=== PATIENT | male | born 1940 | race Caucasian/White ===

== ENCOUNTER 2017-01-26 16:33 | Emergency (ER) | payer MEDICARE, OTHER ==
[2017-01-26] MEDS ORDERED: Sodium Chloride 0.9% 10 ML Syringe FLUSH PRN (18:19)
--- NOTE | 2017-01-26 18:26 | EDM.PDOC ---
ED HPI GENERAL MEDICAL PROBLEM - General Chief Complaint: Exposure to Heat or Cold Stated Complaint: FELL Time Seen by Provider: 01/26/17 18:12 Source of Information: Reports: Patient, Family, RN Notes Reviewed History Limitations: Reports: No Limitations - History of Present Illness INITIAL COMMENTS - FREE TEXT/NARRATIVE: 76-year-old gentleman presents emergency department day complaint of weakness, he states he's been out in the sun most the day has progressively gotten weak throughout the day has fallen 5 times because he's so weak he denies the ability to sweat, no fever no nausea or vomiting - Related Data Allergies Allergy/AdvReac Type Severity Reaction Status Date / Time No Known Allergies Allergy Verified 01/26/17 17:04 Home Meds: Home Meds DULoxetine HCl [Cymbalta] 30 mg PO DAILY 01/26/17 [History] Furosemide [Lasix] 20 mg PO DAILY PRN 01/26/17 [History] Gabapentin [Gabapentin] 100 mg PO BID 01/26/17 [History] Pantoprazole [ProTONIX] 40 mg PO DAILY 01/26/17 [History] Ranitidine HCl [Zantac] 150 mg PO BID 01/26/17 [History] Tamsulosin HCl [Flomax] 0.4 mg PO BID 01/26/17 [History] amLODIPine [Norvasc] 10 mg PO DAILY 01/26/17 [History] atorvaSTATin [Lipitor] 80 mg PO DAILY 01/26/17 [History] buPROPion HCl [Wellbutrin SR] 150 mg PO DAILY 01/26/17 [History] traZODone 100 mg PO BEDTIME 01/26/17 [History] Past Medical History Cardiovascular History: Reports: High Cholesterol, Hypertension, Other (See Below) Other Cardiovascular History: angioplasty Gastrointestinal History: Reports: GERD Genitourinary History: Reports: Prostate Disorder Psychiatric History: Reports: Anxiety, Depression - Past Surgical History HEENT Surgical History: Reports: LASIK GI Surgical History: Reports: Hernia Repair/Other Neurological Surgical History: Reports: Lumbar Spine Musculoskeletal Surgical History: Reports: Hip Replacement, Knee Replacement Social & Family History - Tobacco Use Smoking Status *Q: Never Smoker - Caffeine Use Caffeine Use: Reports: Tea - Recreational Drug Use Recreational Drug Use: No ED ROS GENERAL - Review of Systems Review Of Systems: See Below Constitutional: Reports: Weakness. Denies: Fever, Chills, Diaphoresis HEENT: Reports: No Symptoms Respiratory: Reports: No Symptoms Cardiovascular: Reports: No Symptoms GI/Abdominal: Reports: No Symptoms : Reports: No Symptoms Musculoskeletal: Reports: No Symptoms Skin: Reports: No Symptoms Neurological: Reports: No Symptoms (Or or) Psychiatric: Reports: No Symptoms ED EXAM, GENERAL - Physical Exam Exam: See Below (And) Free Text/Narrative:: General: Elderly gentleman, not in any distress, alert and oriented x3 HEENT: head is normo an abrasion temporal right side, normal, eyes pupils equal round reactive to light, sclera clear no conjunctivitis appreciated. Ears hearing aids in place bilaterally. Nose no septal deviation, nares are clear, no blood present. Mouth mucosa is moist and pink no erythema or exudate noted in soft palate, tongue is midline uvula is midline, dentition is intact. Neck: Supple no thyromegaly no tracheal deviation. Nodes: Cervical nodes subclavicular nodes nontender no palpable lymphadenopathy noted. Lungs: clear to auscultation bilaterally with symmetrical respirations, no adventitious noise appreciated. CV: Regular rate and rhythm S1 and S2 appreciated no murmurs rubs or gallops noted. Abdomen: Soft, nontender, no palpable masses or organomegaly appreciated, no distention no guarding bowel sounds are present, . Neuro: Cranial nerves II through XII grossly intact Skin: Abrasions are noted on the left elbow with superficial skin tears and Extremities: No lower extremity edema appreciated, . Course - Vital Signs Last Recorded V/S: Last Vital Signs Temp 97.9 F 01/26/17 18:16 Pulse 57 L 01/26/17 21:28 Resp 20 01/26/17 21:28 BP 148/85 H 01/26/17 21:28 Pulse Ox 92 L 01/26/17 21:28 - Orders/Labs/Meds Orders: Active Orders 24 hr Category Date Time Status EKG Documentation Completion [RC] ASDIRECTED Care 01/26/17 18:20 Active Peripheral IV Care [RC] . DIRECTED Care 01/26/17 18:20 Active Elbow 2V Lt [CR] Stat Exams 01/26/17 18:26 Taken Head wo Cont [CT] Stat Exams 01/26/17 20:44 Taken Lactated Ringers [Ringers, Lactated] 1,000 ml Med 01/26/17 18:30 Active IV ASDIRECTED Sodium Chloride 0.9% [Saline Flush] Med 01/26/17 18:19 Active 10 ml FLUSH ASDIRECTED PRN Peripheral IV Insertion Adult [OM.PC] Urgent Oth 01/26/17 18:19 Ordered EKG 12 Lead [EK] Stat Ther 01/26/17 18:20 Ordered Medication Orders Lactated Ringer's (Ringers, Lactated) 1,000 mls @ 999 mls/hr IV ASDIRECTED LUIS Last Admin: 01/26/17 18:33 Dose: 999 mls/hr Sodium Chloride (Saline Flush) 10 ml FLUSH ASDIRECTED PRN PRN Reason: Keep Vein Open Last Admin: 01/26/17 18:34 Dose: 10 ml Labs: Laboratory Tests 01/26/17 01/26/17 01/26/17 Range/Units 18:19 18:19 18:19 WBC 11.8 H (4.5-11.0) K/uL RBC 4.54 (4.30-5.90) M/uL Hgb 14.3 (12.0-15.0) g/dL Hct 42.5 (40.0-54.0) % MCV 94 (80-98) fL MCH 32 H (27-31) pg MCHC 34 (32-36) % Plt Count 173 (150-400) K/uL Neut % (Auto) 81 H (36-66) % Lymph % (Auto) 11 L (24-44) % Coleman % (Auto) 7 H (2-6) % Eos % (Auto) 1 L (2-4) % Baso % (Auto) 0 (0-1) % Sodium 137 L (140-148) mmol/L Potassium 4.5 (3.6-5.2) mmol/L Chloride 102 (100-108) mmol/L Carbon Dioxide 25 (21-32) mmol/L Anion Gap 14.5 H (5.0-14.0) mmol/L BUN 28 H (7-18) mg/dL Creatinine 1.5 H (0.8-1.3) mg/dL Est Cr Clr Drug Dosing 39.17 mL/min Estimated GFR (MDRD) 46 L (>60) Glucose 94 (74-106) mg/dL Lactic Acid 1.2 (0.4-2.0) mmol/L Calcium 9.0 (8.5-10.1) mg/dL Magnesium 2.6 H (1.8-2.4) mg/dL Total Bilirubin 0.6 (0.2-1.0) mg/dL AST 21 (15-37) U/L ALT 35 (12-78) U/L Alkaline Phosphatase 81 (46-116) U/L Total Protein 7.7 (6.4-8.2) g/dL Albumin 3.6 (3.4-5.0) g/dL Globulin 4.1 H (2.3-3.5) g/dL Albumin/Globulin Ratio 0.9 L (1.2-2.2) Urine Color Urine Appearance Urine pH (4.5-8.0) Ur Specific [place] (1.008-1.030) Urine Protein (NEGATIVE) mg/dL Urine Glucose (UA) (NEGATIVE) mg/dL Urine Ketones (NEGATIVE) mg/dL Urine Occult Blood (NEGATIVE) Urine Nitrite (NEGAITVE) Urine Bilirubin (NEGATIVE) Urine Urobilinogen (NORMAL) mg/dL Ur Leukocyte Esterase (NEGATIVE) Urine RBC (0-5) Urine WBC (0-5) Ur Epithelial Cells Amorphous Sediment Urine Bacteria Urine Mucus 01/26/17 Range/Units 19:11 WBC (4.5-11.0) K/uL RBC (4.30-5.90) M/uL Hgb (12.0-15.0) g/dL Hct (40.0-54.0) % MCV (80-98) fL MCH (27-31) pg MCHC (32-36) % Plt Count (150-400) K/uL Neut % (Auto) (36-66) % Lymph % (Auto) (24-44) % Coleman % (Auto) (2-6) % Eos % (Auto) (2-4) % Baso % (Auto) (0-1) % Sodium (140-148) mmol/L Potassium (3.6-5.2) mmol/L Chloride (100-108) mmol/L Carbon Dioxide (21-32) mmol/L Anion Gap (5.0-14.0) mmol/L BUN (7-18) mg/dL Creatinine (0.8-1.3) mg/dL Est Cr Clr Drug Dosing mL/min Estimated GFR (MDRD) (>60) Glucose (74-106) mg/dL Lactic Acid (0.4-2.0) mmol/L Calcium (8.5-10.1) mg/dL Magnesium (1.8-2.4) mg/dL Total Bilirubin (0.2-1.0) mg/dL AST (15-37) U/L ALT (12-78) U/L Alkaline Phosphatase (46-116) U/L Total Protein (6.4-8.2) g/dL Albumin (3.4-5.0) g/dL Globulin (2.3-3.5) g/dL Albumin/Globulin Ratio (1.2-2.2) Urine Color Yellow Urine Appearance Clear Urine pH 6.0 (4.5-8.0) Ur Specific [place] 1.010 (1.008-1.030) Urine Protein Negative (NEGATIVE) mg/dL Urine Glucose (UA) Normal (NEGATIVE) mg/dL Urine Ketones Negative (NEGATIVE) mg/dL Urine Occult Blood Negative (NEGATIVE) Urine Nitrite Negative (NEGAITVE) Urine Bilirubin Negative (NEGATIVE) Urine Urobilinogen Normal (NORMAL) mg/dL Ur Leukocyte Esterase Negative (NEGATIVE) Urine RBC 0-5 (0-5) Urine WBC 0-5 (0-5) Ur Epithelial Cells Rare Amorphous Sediment Few Urine Bacteria Not seen Urine Mucus Few Meds: Medications Generic Name Dose Route Start Last Admin Trade Name Freq PRN Reason Stop Dose Admin Lactated Ringer's 1,000 mls @ 999 mls/hr 01/26/17 18:30 01/26/17 18:33 Ringers, Lactated IV 999 mls/hr ASDIRECTED LUIS Administration Sodium Chloride 10 ml 01/26/17 18:19 01/26/17 18:34 Saline Flush FLUSH 10 ml ASDIRECTED PRN Administration Keep Vein Open Departure - Departure Time of Disposition: 22:00 Disposition: Home, Self-Care 01 Condition: fair Clinical Impression: Heat exposure Qualifiers: Encounter type: initial encounter Qualified Code(s): T67.9XXA - Effect of heat and light, unspecified, initial encounter - Discharge Information Forms: ED Department Discharge Additional Instructions: please report for your epidural injection tomorrow, and followup with your primary care provider about spinal stenosis - My Orders Last 24 Hours: My Active Orders 01/26/17 18:19 Sodium Chloride 0.9% [Saline Flush] 10 ml FLUSH ASDIRECTED PRN Peripheral IV Insertion Adult [OM.PC] Urgent 01/26/17 18:20 EKG Documentation Completion [RC] ASDIRECTED Peripheral IV Care [RC] . DIRECTED EKG 12 Lead [EK] Stat 01/26/17 18:26 Elbow 2V Lt [CR] Stat 01/26/17 18:30 Lactated Ringers [Ringers, Lactated] 1,000 ml IV ASDIRECTED 01/26/17 20:44 Head wo Cont [CT] Stat - Assessment/Plan Last 24 Hours: My Active Orders 01/26/17 18:19 Sodium Chloride 0.9% [Saline Flush] 10 ml FLUSH ASDIRECTED PRN Peripheral IV Insertion Adult [OM.PC] Urgent 01/26/17 18:20 EKG Documentation Completion [RC] ASDIRECTED Peripheral IV Care [RC] . DIRECTED EKG 12 Lead [EK] Stat 01/26/17 18:26 Elbow 2V Lt [CR] Stat 01/26/17 18:30 Lactated Ringers [Ringers, Lactated] 1,000 ml IV ASDIRECTED 01/26/17 20:44 Head wo Cont [CT] Stat Plan: Assessment Acuity = acute Site and laterality = overexertion with heat exhaustion complicated patient with known spinal stenosis lumbar region Etiology = for fluid intake today Manifestations = generalized weakness from spinal stenosis lower extremities Location of injury = home Lab values = WBC elevated 11.8 consistent leukocytosis sodium low at 137 consistent hyponatremia creatinine elevated at 1.5 consistent chronic renal failure stage GIII B. magnesium elevated at 2.6 consistent hypomagnesemia urinalysis unremarkable, CT head is negative Plan I did review lab work with him he felt better after a meal and 1 L of fluids was able to urinate without difficulty asked him to follow up with his primary care for further evaluation of spinal stenosis Patient was in agreement with the plan all questions were answered, they were instructed to return to the emergency department or call for worsening symptoms. This note was dictated using [employer] voice recognition software please call with any questions.
[2017-01-26] MEDS ORDERED: Lactated Ringers 1,000 ML IV SCH (18:30)
[2017-01-26 21:29] VITALS: BP 148/85
== END 2017-01-26 22:35 | disposition home or self-care (01) ==
LOC: JP.ED 16:33
DX: T67.9XXA Effect of heat and light, unspecified, initial encounter (principal); K21.9 Gastro-esophageal reflux disease without esophagitis; I10 Essential (primary) hypertension; Z96.649 Presence of unspecified artificial hip joint; Z96.659 Presence of unspecified artificial knee joint; Z98.890 Other specified postprocedural states; Z79.899 Other long term (current) drug therapy
CPT/HCPCS: 36415; 70450; 73070; 80053; 81001; 83605; 83735; 85025; 93005; 96360; 99285; J7050; J7120; 93010; 99282

== ENCOUNTER 2023-10-04 21:06 | Emergency (ER) | payer MEDICARE, OTHER ==
[2023-10-04 21:30] VITALS: BP 158/73; PULSE 66
[2023-10-04 21:53] LABS: BASOPHILS ABSOLUTE AUTO 0.05 K/uL (0.00-0.10); BASOPHILS PERCENT AUTO 0.5 % (0.1-1.3); EOSINOPHILS ABSOLUTE AUTO 0.18 K/uL (0.00-0.40); HEMATOCRIT 34.2 % (38.4-49.7); HEMOGLOBIN 11.2 g/dL (12.9-16.9); IMMATURE GRAN PERCENT AUTO 0.2 % (0.0-0.7); LYMPHOCYTES ABSOLUTE AUTO 2.83 K/uL (0.8-3.3); MEAN CORPUSCULAR HEMOGLOBIN 28.5 pg (31.6-35.5); MEAN CORPUSCULAR HGB CONC 32.7 g/dL (31.6-35.5); MONOCYTES ABSOLUTE AUTO 1.13 K/uL (0.20-0.90); MONOCYTES PERCENT AUTO 12.4 % (3.3-12.6); NEUTROPHILS ABSOLUTE AUTO 4.92 K/uL (1.0-7.6); NEUTROPHILS PERCENT AUTO 53.9 % (40.0-78.1); PLATELET COUNT,PLT 215 K/uL (130-375); RED BLOOD CELL COUNT 3.93 M/uL (4.14-5.76); WHITE BLOOD CELL COUNT,WBC 9.1 K/uL (3.2-11.0)
[2023-10-04 22:00] LABS: IMMATURE GRAN ABSOLUTE AUTO 0.02 K/uL (0.00-0.23)
[2023-10-04 22:09] LABS: CALCIUM 8.6 mg/dL (8.5-10.1); CREATININE 1.6 mg/dL (0.8-1.3); EST CRCL DRUG DOSING (CG) 29.29 mL/min; POTASSIUM,K 3.4 mmol/L (3.6-5.2)
[2023-10-04 22:13] LABS: APPEARANCE,URINE CLEAR (CLEAR); BILIRUBIN,URINE NEGATIVE (NEGATIVE); COLOR,URINE YELLOW (YELLOW); GLUCOSE,URINE NEGATIVE (NEGATIVE); KETONES,URINE NEGATIVE (NEGATIVE); LEUKOCYTE ESTERASE,URINE NEGATIVE (NEGATIVE); NITRITE,URINE NEGATIVE (NEGATIVE); OCCULT BLOOD,URINE NEGATIVE (NEGATIVE); PH,URINE 6.5 (5.0-8.0); PROTEIN,URINE NEGATIVE (NEGATIVE); UROBILINOGEN,URINE 0.2 EU/dL (0.2-1.0)
[2023-10-04 22:14] LABS: ANION GAP 14.4 mmol/L (5.0-14.0)
[2023-10-04 22:22] LABS: AMORPHOUS SEDIMENT,URINE NOT SEEN; BACTERIA,URINE FEW; EPITHELIAL CELLS,URINE NOT SEEN; MUCUS,URINE NOT SEEN; RBC,URINE 0-5 (0-5); WBC,URINE 0-5 (0-5)
== END 2023-10-04 22:51 | disposition home or self-care (01) ==
LOC: JP.ED 21:06
DX: S39.012A Strain of muscle, fascia and tendon of lower back, initial encounter (principal); I10 Essential (primary) hypertension; E78.00 Pure hypercholesterolemia, unspecified; K21.9 Gastro-esophageal reflux disease without esophagitis; Z79.899 Other long term (current) drug therapy
CPT/HCPCS: 36415; 80048; 81001; 85025; 99283